=== PATIENT | male | born 1990 | race Caucasian/White ===

== ENCOUNTER 2020-06-10 23:32 | Emergency (ER) | payer OTHER ==
[2020-06-10 23:38] VITALS: BP 128/74; PULSE 84; RESP 20; TEMP 98
[2020-06-10] MEDS ORDERED: MORPHINE SULFATE 4 MG/ML SYRINGE IM STA (23:56)
[2020-06-10] MEDS ORDERED: KETOROLAC 15 MG/ML 1 ML VIAL IM STA (23:56)
--- NOTE | 2020-06-11 00:23 | XR ---
EXAM: XR Left Shoulder Complete, 2 or More Views CLINICAL HISTORY: ITS.REASON XR Reason: left shoulder pain TECHNIQUE: Two or more views of the left shoulder. COMPARISON: No relevant prior studies available. FINDINGS: Bones/joints: No acute fracture. No dislocation. Soft tissues: 11 mm and 3 mm calcifications in the rotator cuff insertion site. IMPRESSION: No acute osseous abnormalities. Calcific tendinitis.
[2020-06-11] MEDS ORDERED: ACET/COD 300 MG/30 MG STARTER PACK 6 TAB BTL PO STA (01:08)
[2020-06-11] MEDS ORDERED: HYDROmorphone 1 MG/ML 1 ML SYRINGE IM STA (01:08)
[2020-06-11] MEDS ORDERED: IBUPROFEN 600 MG STARTER PACK 4 TAB BTL PO STA (01:08)
--- NOTE | 2020-06-11 01:11 | ED ---
Upper Extremity HPI - General Chief Complaint: Extremity Injury, Upper Stated Complaint: Left shoulder injury Time Seen by Provider: 06/10/20 23:39 Source: patient Mode of arrival: ambulatory Limitations: no limitations - History of Present Illness Initial Comments: 29 year-old male patient presents to the emergency department for evaluation of left shoulder pain. Patient states around 8pm he was coming down a ladder. He states he put all his weight on the left arm and felt a popping sensation in his left shoulder. Patient states he has had significant discomfort and difficulty moving the shoulder since. He denies any falls. Denies any other injuries. Denies taking any medication for pain control. Denies previous injury to this shoulder. Patient denies any headache, neck pain, back pain, chest pain, shortness of breath, dizziness, weakness, abdominal pain, nausea, vomiting, or difficulties with bowel movements or urination. - Related Data Previous Rx's Medication Instructions Recorded Cyclobenzaprine [Flexeril] 10 mg PO TID #15 tab 06/11/20 Ibuprofen [Motrin] 600 mg PO Q8HR PRN #30 tab 06/11/20 Allergies Allergy/AdvReac Type Severity Reaction Status Date / Time No Known Allergies Allergy Verified 06/10/20 23:37 Review of Systems ROS Statement: Those systems with pertinent positive or pertinent negative responses have been documented in the HPI. ROS Other: All systems not noted in ROS Statement are negative. Past Medical History Past Medical History: No Reported History History of Any Multi-Drug Resistant Organisms: None Reported Past Surgical History: No Surgical Hx Reported Past Psychological History: No Psychological Hx Reported Smoking Status: Never smoker Past Alcohol Use History: Occasional Past Drug Use History: None Reported General Exam Limitations: no limitations General appearance: alert, in no apparent distress, other (physical well- developed, well-nourished adult male patient in no acute distress. ) Neck exam: Present: normal inspection, full ROM, other (Nontender, no step-off, no deformity to firm midline palpation of the posterior cervical spine. Full range of motion without pain or limitation.). Absent: tenderness, meningismus, lymphadenopathy Respiratory exam: Present: normal lung sounds bilaterally. Absent: respiratory distress, wheezes, rales, rhonchi, stridor Cardiovascular Exam: Present: regular rate, normal rhythm, normal heart sounds. Absent: systolic murmur, diastolic murmur, rubs, gallop, clicks Extremities exam: Present: normal inspection, normal capillary refill, other (skin to the left arm is pink, warm, dry. Cap refill less than 3 seconds. Radial pulses 2+ and equal bilaterally. ). Absent: full ROM (refuses to move the arm due to pain), tenderness, pedal edema, joint swelling, calf tenderness Neurological exam: Present: alert, oriented X3, CN II-XII intact Psychiatric exam: Present: normal affect, normal mood Skin exam: Present: warm, dry, intact, normal color. Absent: rash Course Vital Signs 06/10/20 23:34 Temperature 98.0 F Pulse Rate 84 Respiratory 20 Rate Blood Pressure 128/74 O2 Sat by Pulse 98 Oximetry Medical Decision Making - Medical Decision Making 29-year-old male patient presents to the emergency department today for evaluation of left shoulder pain after injury. Physical examination did reveal normal neurovascular status. Patient did have improved range of motion after receiving pain medication. X-rays are obtained and showed no acute ab normalities. Did discuss findings and results with the patient will be discharged with a sling but instructed to do range of motion 2-3 times daily. He is instructed to follow up with peer specialist for further evaluation. Return parameters were discussed in detail. He verbalizes understanding and agrees with this plan. - Radiology Data Radiology results: report reviewed, image reviewed Multiple views of the left shoulder is obtained. Report is reviewed in its entirety. Impression by Dr. Toney shows no acute osseous abdomen abnormalities. Calcific tendinitis. Disposition Clinical Impression: Injury of left shoulder Disposition: HOME SELF-CARE Condition: Good Instructions (If sedation given, give patient instructions): Shoulder Pain (ED) Additional Instructions: Perform gentle range of motion of the left shoulder 2-3 times daily to maintain range of motion. Take medications as directed for pain. Follow-up with peer specialist for further evaluation as soon as possible. Return to the emergency department immediately for any new, worsening, or concerning symptoms. Prescriptions: Cyclobenzaprine [Flexeril] 10 mg PO TID #15 tab Ibuprofen [Motrin] 600 mg PO Q8HR PRN #30 tab PRN Reason: Pain Is patient prescribed a controlled substance at d/c from ED?: No Referrals: Lucio Marte MD [STAFF PHYSICIAN] - 1-2 days Time of Disposition: 01:10
== END 2020-06-11 01:28 | disposition home or self-care (01) ==
LOC: EC 23:32
DX: S49.92XA Unspecified injury of left shoulder and upper arm, initial encounter (principal); X50.0XXA Overexertion from strenuous movement or load, initial encounter; Y92.009 Unspecified place in unspecified non-institutional (private) residence as the place of occurrence of the external cause
CPT/HCPCS: 73030; 99283; 96372 ×3; J2270; J1170; J1885